=== PATIENT | male | born 1960 | race Hispanic/Latino ===

== ENCOUNTER 2017-11-20 20:49 | Emergency (ER) | payer SELFPAY ==
[2017-11-20 21:59] VITALS: BP 134/86
--- NOTE | 2017-11-20 23:52 | XRay Report ---
FINAL REPORT PROCEDURE: XR CHEST ROUTINE 2V TECHNIQUE: PA and lateral chest radiographs were obtained. CPT 44171 HISTORY: Shortness of breath COMPARISON: No prior studies are available for comparison. FINDINGS: Heart: Normal. Mediastinum/Vessels: There is calcified lymph node in the left pulmonary hilum.. Lungs/Pleural space: Lungs are clear. There are no infiltrates, effusions or pneumothoraces.. Bony thorax: No acute osseous abnormality. Other: IMPRESSION: Heart size is normal.. Lungs are clear. There are no infiltrates, effusions or pneumothoraces..
[2017-11-21] MEDS ORDERED: TYLENOL ONE (01:15)
== END 2017-11-21 02:00 | disposition left against medical advice (07) ==
LOC: ED 20:49
DX: R06.02 Shortness of breath (principal); Z53.21 Procedure and treatment not carried out due to patient leaving prior to being seen by health care provider
CPT/HCPCS: 71046; 93005; 93010